=== PATIENT | female | born 1955 | race Caucasian/White ===

== ENCOUNTER 2023-11-14 09:59 | Observation (INO) | payer BC, MEDICARE ==
[2023-11-14] MEDS: Ketorolac 30 MG/ML SDV IVPUSH ONE (10:42)
[2023-11-14] MEDS: Sodium Chloride 0.9% 10 ML Syringe FLUSH PRN (10:43)
[2023-11-14 11:12] LABS: BASOPHILS PERCENT AUTO 0.3 % (0.0-1.0); EOSINOPHILS ABSOLUTE AUTO 0.1 K/mm3 (0.0-0.4); EOSINOPHILS PERCENT AUTO 0.8 % (0.0-6.0); HEMATOCRIT 39.1 % (37.0-47.0); HEMOGLOBIN 12.6 gm/dl (12.0-16.0); IMMATURE GRAN ABSOLUTE AUTO 0.06 K/mm3 (0.00-0.05); IMMATURE GRAN PERCENT AUTO 0.5 % (0.0-0.4); LYMPHOCYTES ABSOLUTE AUTO 3.7 K/mm3 (1.0-4.8); LYMPHOCYTES PERCENT AUTO 27.9 % (24.0-44.0); MEAN CORPUSCULAR HEMOGLOBIN 32.4 pg (28.0-32.0); MEAN CORPUSCULAR HGB CONC 32.2 g/dl (32.0-36.0); MEAN CORPUSCULAR VOLUME 100.5 fl (83.0-99.0); MEAN PLATELET VOLUME 9.1 fl (9.4-12.3); MONOCYTES ABSOLUTE AUTO 0.8 K/mm3 (0.0-0.8); NEUTROPHILS ABSOLUTE AUTO 8.4 K/mm3 (1.8-7.7); NEUTROPHILS PERCENT AUTO 64.5 % (41.0-71.0); PLATELET COUNT,PLT 303 K/mm3 (150-400); RED BLOOD CELL COUNT 3.89 M/mm3 (4.10-5.30); WHITE BLOOD CELL COUNT,WBC 13.06 K/mm3 (3.9-11.3)
[2023-11-14 11:38] LABS: A/G RATIO 0.9 (1-2); ALBUMIN 2.9 g/dl (3.4-5.0); ANION GAP 9.6 (5-15); BILIRUBIN TOTAL 0.4 mg/dL (0.2-1.0); BUN/CREATININE RATIO 17.8 (14-18); CALCIUM 8.4 mg/dL (8.5-10.1); CREATININE 0.9 mg/dL (0.55-1.02); EST CRCL DRUG DOSING (CG) 55.23 mL/min; POTASSIUM,K 3.6 mEq/L (3.5-5.1)
[2023-11-14] MEDS: HYDROmorphone 0.5 MG/0.5 ML Syringe IVPUSH ONE (13:44)
[2023-11-14] MEDS ORDERED: Sodium Chloride 0.9% 10 ML Syringe FLUSH PRN (15:15)
[2023-11-14] MEDS ORDERED: Temazepam 15 MG Cap PO PRN (15:15)
[2023-11-14] MEDS ORDERED: Ondansetron 4 MG Tab.DIS PO PRN (15:15)
[2023-11-14] MEDS: oxyCODONE 5 MG Tab PO PRN (17:36)
[2023-11-14] MEDS: HYDROmorphone 0.5 MG/0.5 ML Syringe IVPUSH PRN (19:32)
[2023-11-14] MEDS: Acetaminophen 325 MG Tab PO PRN (21:39)
[2023-11-15 05:34] LABS: BASOPHILS PERCENT AUTO 0.2 % (0.0-1.0); EOSINOPHILS ABSOLUTE AUTO 0.1 K/mm3 (0.0-0.4); EOSINOPHILS PERCENT AUTO 0.9 % (0.0-6.0); HEMATOCRIT 38.8 % (37.0-47.0); HEMOGLOBIN 12.9 gm/dl (12.0-16.0); IMMATURE GRAN ABSOLUTE AUTO 0.04 K/mm3 (0.00-0.05); IMMATURE GRAN PERCENT AUTO 0.4 % (0.0-0.4); LYMPHOCYTES ABSOLUTE AUTO 2.5 K/mm3 (1.0-4.8); LYMPHOCYTES PERCENT AUTO 23.3 % (24.0-44.0); MEAN CORPUSCULAR HEMOGLOBIN 32.6 pg (28.0-32.0); MEAN CORPUSCULAR HGB CONC 33.2 g/dl (32.0-36.0); MEAN PLATELET VOLUME 9.2 fl (9.4-12.3); MONOCYTES ABSOLUTE AUTO 0.7 K/mm3 (0.0-0.8); MONOCYTES PERCENT AUTO 6.6 % (0.0-8.0); NEUTROPHILS ABSOLUTE AUTO 7.3 K/mm3 (1.8-7.7); NEUTROPHILS PERCENT AUTO 68.6 % (41.0-71.0); PLATELET COUNT,PLT 308 K/mm3 (150-400); RED BLOOD CELL COUNT 3.96 M/mm3 (4.10-5.30)
[2023-11-15 05:57] LABS: A/G RATIO 0.9 (1-2); ALBUMIN 2.9 g/dl (3.4-5.0); ANION GAP 9.7 (5-15); BILIRUBIN TOTAL 0.7 mg/dL (0.2-1.0); BUN/CREATININE RATIO 12.5 (14-18); CALCIUM 8.1 mg/dL (8.5-10.1); CREATININE 0.8 mg/dL (0.55-1.02); EST CRCL DRUG DOSING (CG) 62.13 mL/min; MAGNESIUM 2.1 mg/dL (1.8-2.4); POTASSIUM,K 3.7 mEq/L (3.5-5.1); PROTEIN TOTAL,TP 6.1 g/dl (6.4-8.2)
[2023-11-15] MEDS: LORazepam 1 MG Tab PO ONE (06:57)
[2023-11-15] MEDS: Enoxaparin 40 MG/0.4 ML Syringe SUBCUT SCH (08:51)
[2023-11-15] MEDS ORDERED: Acetaminophen 325 MG Tab PO PRN (11:31)
[2023-11-15 11:59] LABS: TSH 4.068 uIU/mL (0.358-3.74)
[2023-11-15 12:26] LABS: T4 FREE 1.22 ng/dL (0.76-1.46)
[2023-11-15] MEDS: Lidocaine 4% 1 each Patch TOP SCH (13:28)
[2023-11-15] MEDS: Diclofenac Sodium 1% Gel 100 GM Tube TOP PRN (13:29)
[2023-11-15] MEDS: Acetaminophen 325 MG Tab PO SCH (13:30)
[2023-11-15] MEDS: Gabapentin 100 MG Cap PO SCH (14:58)
[2023-11-15] MEDS: Docusate Sodium 100 MG Cap PO PRN (18:03)
[2023-11-15] MEDS: Ketorolac 15 MG/ML SDV IVPUSH PRN (18:46)
[2023-11-16 06:05] LABS: A/G RATIO 0.8 (1-2); ALBUMIN 2.8 g/dl (3.4-5.0); BILIRUBIN TOTAL 0.5 mg/dL (0.2-1.0); BUN/CREATININE RATIO 13.8 (14-18); CALCIUM 8.4 mg/dL (8.5-10.1); CREATININE 0.8 mg/dL (0.55-1.02); EST CRCL DRUG DOSING (CG) 62.13 mL/min; PROTEIN TOTAL,TP 6.2 g/dl (6.4-8.2)
[2023-11-16] MEDS: Polyethylene Glycol 3350 Powder 17 GM Packet PO SCH (08:20)
[2023-11-16] MEDS: Sennosides/Docusate Sodium 50-8.6 MG Tab PO ONE (13:20)
[2023-11-16] MEDS: Bisacodyl 10 MG Supp RECTAL ONE (13:20)
[2023-11-18 11:47] LABS: ALPHA 1 GLOBULIN 0.34 g/dL (0.19-0.46); ALPHA 2 GLOBULIN 0.74 g/dL (0.48-1.05); BETA GLOBULIN 0.71 g/dL (0.48-1.10); GAMMA 0.71 g/dL (0.62-1.51); IMMUNOFIXATION IFE Done; TOTAL PROTEIN, SERUM 5.6 g/dL (6.3-8.2)
[2023-11-19 04:46] LABS: ALBUMIN 3.06 g/dL (3.75-5.01); ALPHA 1 GLOBULIN 0.39 g/dL (0.19-0.46); ALPHA 2 GLOBULIN 0.73 g/dL (0.48-1.05); BETA GLOBULIN 0.77 g/dL (0.48-1.10); GAMMA 0.64 g/dL (0.62-1.51); TOTAL PROTEIN, SERUM 5.6 g/dL (6.3-8.2)
== END 2023-11-16 15:30 | disposition home or self-care (01) ==
LOC: JD.ED 09:59 → JD.MS 14:37
PROVIDERS: ADMIT Internal Medicine; ATTEND Internal Medicine
DX: M54.50 Low back pain, unspecified (principal); M79.604 Pain in right leg; M84.48XA Pathological fracture, other site, initial encounter for fracture; S32.059D Unspecified fracture of fifth lumbar vertebra, subsequent encounter for fracture with routine healing; R26.9 Unspecified abnormalities of gait and mobility; E03.8 Other specified hypothyroidism; E78.5 Hyperlipidemia, unspecified
CPT/HCPCS: 36415; 72131; 72195; 80053; 82947; 83735; 84155; 84156; 84165; 84166; 84439; 84443; 85025; 85379; 86334; 86335; 93971; 96374; 96375; 97110; 97161; 99285; A9270; J1170; J1650; J1885; J3490; 96372; 96376; G0378

== ENCOUNTER 2023-12-05 20:15 | Emergency (ER) | payer MEDICARE ==
[2023-12-05] MEDS: Diphtheria,Pertussis(Acell),Tetanus Vaccine 0.5 ML Syringe IM ONE (21:29)
== END 2023-12-05 21:45 | disposition home or self-care (01) ==
LOC: JD.ED 20:15
DX: S81.811A Laceration without foreign body, right lower leg, initial encounter (principal); Z23 Encounter for immunization; X58.XXXA Exposure to other specified factors, initial encounter
CPT/HCPCS: 90471; 90715; 99282-25